=== PATIENT | male | born 1945 | race Caucasian/White ===

== ENCOUNTER 2017-11-29 09:19 | Day surgery (SDC) | payer MEDICARE, OTHER ==
[~2017-11-29] VITALS: Ht 180.3 cm; Wt 79.8 kg
[2017-11-29] MEDS ORDERED: TRAM50 (09:53)
[2017-11-29] MEDS ORDERED: MONT10T PO (09:53)
[2017-11-29] MEDS ORDERED: Aspir 8181 MG (09:54)
[2017-11-29] MEDS ORDERED: Diclofenac Pota50 MG (09:55)
[2017-11-29] MEDS ORDERED: SEA-OMEGA 1,001 EACH (09:55)
[2017-11-29] MEDS ORDERED: MOMENI (09:55)
[2017-11-29] MEDS ORDERED: ATOR10 (09:56)
[2017-11-29] MEDS ORDERED: Coq-10100 MG (09:56)
[2017-11-29] MEDS ORDERED: CELE200 (09:57)
[2017-11-29] MEDS ORDERED: CHOL10002 (09:57)
[2017-11-29] MEDS ORDERED: Desyrel50 MG (09:58)
[2018-09-20] MEDS ORDERED: CARV6.25 (09:38)
== END 2017-11-29 11:16 | disposition home or self-care (01) ==
LOC: ORSCSDS 09:19
PROVIDERS: Anesthesiology
PROC: 3E0R33Z Introduction of Anti-inflammatory into Spinal Canal, Percutaneous Approach (ICD-10-PCS; principal; 2017-11-29 10:30)
DX: M51.16 Intervertebral disc disorders with radiculopathy, lumbar region (principal); M96.1 Postlaminectomy syndrome, not elsewhere classified; I10 Essential (primary) hypertension; J45.909 Unspecified asthma, uncomplicated; E78.00 Pure hypercholesterolemia, unspecified; Z79.82 Long term (current) use of aspirin; Z79.899 Other long term (current) drug therapy
CPT/HCPCS: J1040

== ENCOUNTER → 2018-12-13 | Outpatient (CLI) | payer MEDICARE, OTHER ==
[~2018-12-13] MED LIST: ATOR10; Aspir 8181 MG; CARV6.25; CELE200; CHOL10002; Coq-10100 MG; Desyrel50 MG; Diclofenac Pota50 MG; MOMENI; MONT10T PO; SEA-OMEGA 1,001 EACH; TRAM50
[2018-12-13 19:01] LABS: U Amphetamine Screen Not Detected; U Barbituate Screen Not Detected; U Benzodiazapine Screen Not Detected; U Buprenorphine Screen Not Detected; U Cannabinoids Screen Not Detected; U Cocaine Screen Not Detected; U Methadone Screen Not Detected; U Methamphetamine Screen Not Detected; U Opiates Screen Not Detected; U Oxycodone Screen Not Detected; U Phencyclidine Screen Not Detected; U Propoxyphene Screen Not Detected
== END | disposition home or self-care (01) ==
LOC: LAB 16:43 → LAB SHORT 16:43
PROVIDERS: Family Medicine
DX: M54.9 Dorsalgia, unspecified (principal); G89.29 Other chronic pain; Z79.891 Long term (current) use of opiate analgesic

== ENCOUNTER 2019-01-03 13:38 | Day surgery (SDC) | payer MEDICARE, OTHER ==
[~2019-01-03] VITALS: Ht 185.4 cm; Wt 78.5 kg
[2019-01-03] MEDS ORDERED: MYRBETRIQ25 MG PO (13:58)
== END 2019-01-03 15:03 | disposition home or self-care (01) ==
LOC: ORSCSDS 13:38
PROVIDERS: Anesthesiology
PROC: 3E0R33Z Introduction of Anti-inflammatory into Spinal Canal, Percutaneous Approach (ICD-10-PCS; principal; 2019-01-03 14:45)
DX: M54.16 Radiculopathy, lumbar region (principal); M96.1 Postlaminectomy syndrome, not elsewhere classified; I10 Essential (primary) hypertension; E78.00 Pure hypercholesterolemia, unspecified; J45.909 Unspecified asthma, uncomplicated; Z79.82 Long term (current) use of aspirin; Z79.899 Other long term (current) drug therapy
CPT/HCPCS: J1040

== ENCOUNTER 2019-01-25 07:12 | Day surgery (SDC) | payer MEDICARE, OTHER ==
[~2019-01-25] VITALS: Ht 185.4 cm; Wt 78.7 kg
[~2019-01-25 07:12] MED LIST changes: +ATOR10 PO; +CARV3.125 PO; +CELE200 PO; +COENZYME Q10100 MG PO; +Glucosamine-Ch1 EACH PO; +LO-DOSE ASPIRIN81 MG PO; +MYRBETRIQ25 MG PO; +PENNSAID2 GM TOP; +SILDENAFIL20 MG PO; +Sea-Omega 30 C1 EACH PO; +Sudogest60 MG PO; +TRAM50 PO; +VITAMIN D32000 UNIT PO
== END 2019-01-25 08:30 | disposition home or self-care (01) ==
LOC: ORSCSDS 07:12
PROVIDERS: Anesthesiology
PROC: 3E0R33Z Introduction of Anti-inflammatory into Spinal Canal, Percutaneous Approach (ICD-10-PCS; principal; 2019-01-25 08:15)
DX: M51.16 Intervertebral disc disorders with radiculopathy, lumbar region (principal); M96.1 Postlaminectomy syndrome, not elsewhere classified; J45.909 Unspecified asthma, uncomplicated; I10 Essential (primary) hypertension; E78.00 Pure hypercholesterolemia, unspecified; Z79.82 Long term (current) use of aspirin; Z79.899 Other long term (current) drug therapy
CPT/HCPCS: J1040

== ENCOUNTER 2020-08-01 07:13 | Day surgery (SDC) | payer MEDICARE, OTHER ==
[~2020-08-01] VITALS: Ht 182.9 cm; Wt 78.2 kg
[~2020-08-01 07:13] MED LIST changes: +CARV6.25 PO; +GLUCOSAMIN-CHO1 EACH PO; +NAPR220 PO; +NASONEX17 G1 INH; +OMEGA FISH O PO; +PSEU120ER PO; +SILD50TA PO; +TRAZ50 PO; +VITAMIN D32000 UNI1 PO
== END 2020-08-01 10:15 | disposition home or self-care (01) ==
LOC: ORSCSDS 07:13
PROVIDERS: Orthopaedic Surgery
PROC: 01N40ZZ Release Ulnar Nerve, Open Approach (ICD-10-PCS; principal; 2020-08-01 08:45)
DX: G56.22 Lesion of ulnar nerve, left upper limb (principal); I10 Essential (primary) hypertension; E78.5 Hyperlipidemia, unspecified; E11.9 Type 2 diabetes mellitus without complications; J45.909 Unspecified asthma, uncomplicated; Z79.899 Other long term (current) drug therapy; Z87.891 Personal history of nicotine dependence
CPT/HCPCS: 82947; 93005; 93010; J0171; J0690; J1100; J1885; J2405; J2704; J3010; J7120

== ENCOUNTER 2021-11-19 08:19 | Day surgery (SDC) | payer MEDICARE, OTHER ==
[~2021-11-19] VITALS: Ht 182.9 cm; Wt 77.1 kg
[~2021-11-19 08:19] MED LIST changes: +Acetaminophen650 M1 PO; +CHONDROITIN SULFATE PO; +COLLAGENASE INJ; +COQ1050 MG PO; -GLUCOSAMIN-CHO1 EACH PO; +SYSTANE BALANCE10 ML BOTHEYES; +[UNRECOGNIZED DRUG - OTHER] PO
--- NOTE | 2021-11-19 18:01 | NUR ---
PATIENT CURRENTLY SITTING UP IN CHAIR AT BEDSIDE. PATIENT ABLE TO MOVE AND FEEL BOTH LEGS. NO COMPLAINTS OF PAIN VOICED. PATIENT ABLE TO MAKE NEEDS AND WANTS KNOWN. AAOX4. CALL LIGHT AND WATER IN EASY REACH. TAKING PO WELL. SL IV. DRESSING TO RIGHT HIP CDI. PATIENT HAS WORKED WITH PT ALREADY AND DID WELL. WILL MONITOR.
[2021-11-20 04:38] LABS: BASOPHILS ABSOLUTE AUTO 0.01 K/mm3 (0.00-0.23); BASOPHILS PERCENT AUTO 0 % (0-2); EOSINOPHILS ABSOLUTE AUTO 0.05 K/mm3 (0.00-0.68); EOSINOPHILS PERCENT AUTO 0 % (0-6); Hemoglobin 12.1 g/dL (13.5-17.5); IMMATURE GRAN ABSOLUTE AUTO 0.08 K/mm3 (0.00-0.10); IMMATURE GRAN PERCENT AUTO 1 % (0-1); LYMPHOCYTES ABSOLUTE AUTO 1.12 K/mm3 (0.84-5.20); LYMPHOCYTES PERCENT AUTO 8 % (21-46); MONOCYTES ABSOLUTE AUTO 1.65 K/mm3 (0.16-1.47); MONOCYTES PERCENT AUTO 12 % (4-13); Mean Corpuscular HGB 30.9 pg (26.0-34.0); Mean Corpuscular HGB Conc 32.7 g/dL (31.5-36.5); Mean Corpuscular Volume 94 fL (80-100); Mean Platelet Volume 11.2 fL (9.1-12.4); NEUTROPHILS ABSOLUTE AUTO 11.36 K/mm3 (1.96-9.15); NEUTROPHILS PERCENT AUTO 80 % (41-73); Platelet Count 206 K/mm3 (150-400); RDW Coefficient Variation 12.1 % (11.7-14.2); RDW Standard Deviation 41.9 fL (35.1-46.3); Red Blood Cell Count 3.92 M/mm3 (4.30-5.90); White Blood Cell Count 14.27 K/mm3 (4.00-11.30)
[2021-11-20 04:56] LABS: Anion Gap 5 mmol/L (6-16); Blood Urea Nitrogen 22 mg/dL (8-24); CO2, Blood 26 mmol/L (21-32); Calcium, Blood 8.7 mg/dL (8.5-10.1); Chloride, Blood 107 mmol/L (98-108); Glomerular Filtration Rate >60 (60-); Glucose, Blood 123 mg/dL (70-99); Potassium, Blood 4.2 mmol/L (3.5-5.5); Sodium, Blood 138 mmol/L (136-145)
--- NOTE | 2021-11-20 08:07 | NUR ---
SUMMARY UP IN HALLS WITH SBA. TOLERATING PO.VOIDING. PAIN LEVEL 1. PLANS FOR DISCHARGE TODAY.
[2021-11-20] MEDS ORDERED: Aspir 8181 MG PO (09:37)
--- NOTE | 2021-11-20 10:11 | NUR ---
pt. discharged to home. Friend here to take pt. home. DC instructions explained and copy given to patient along with xavier durán and warren yo. patient verbalize understanding of dc instructions. Pt. belongings and polar pack sent with pt.- w/c to exit.
== END 2021-11-20 10:08 | disposition home or self-care (01) ==
LOC: ORSCMMR 08:19 → SURS 12:49 → ORSCMMR 13:30
PROVIDERS: Orthopaedic Surgery
PROC: 0SR90JZ Replacement of Right Hip Joint with Synthetic Substitute, Open Approach (ICD-10-PCS; principal; 2021-11-19 10:00)
DX: M16.11 Unilateral primary osteoarthritis, right hip (principal); E11.9 Type 2 diabetes mellitus without complications; E78.5 Hyperlipidemia, unspecified; I10 Essential (primary) hypertension; Z87.891 Personal history of nicotine dependence; Z79.899 Other long term (current) drug therapy
CPT/HCPCS: 36415; 72170; 80048; 82947; 85025; 97110; 97116; 97162; A9270; C1776; J0171; J0690; J0735; J1100; J1885; J2250; J2370; J2405; J2704; J2795; J3010; J7120

== ENCOUNTER 2022-12-15 07:35 | Day surgery (SDC) | payer MEDICARE, OTHER ==
[~2022-12-15] VITALS: Ht 182.9 cm; Wt 75.9 kg
[~2022-12-15 07:35] MED LIST changes: +Aspir 8181 MG PO
[2022-12-15] MEDS ORDERED: GLUCHON (07:57)
== END 2022-12-15 09:51 | disposition home or self-care (01) ==
LOC: ORSCSDS 07:35
PROVIDERS: Internal Medicine Gastroenterology
PROC: 0DB58ZX Excision of Esophagus, Via Natural or Artificial Opening Endoscopic, Diagnostic (ICD-10-PCS; 2022-12-15)
PROC: 0D758ZZ Dilation of Esophagus, Via Natural or Artificial Opening Endoscopic (ICD-10-PCS; principal; 2022-12-15 09:00)
DX: R13.14 Dysphagia, pharyngoesophageal phase (principal); K20.0 Eosinophilic esophagitis; K22.2 Esophageal obstruction; K44.9 Diaphragmatic hernia without obstruction or gangrene; K57.30 Diverticulosis of large intestine without perforation or abscess without bleeding; Z79.899 Other long term (current) drug therapy
CPT/HCPCS: 82947; 88305; 88312; J2704; J7120

== ENCOUNTER 2023-08-15 12:56 | Day surgery (SDC) | payer MEDICARE, OTHER ==
[~2023-08-15] VITALS: Ht 182.9 cm; Wt 78.1 kg
[~2023-08-15 12:56] MED LIST changes: +GLUCHON
[2023-08-15] MEDS ORDERED: OMEP20ER (13:40)
[2023-08-15] MEDS ORDERED: Acetaminophen650 M1 (13:40)
[2023-08-15] MEDS ORDERED: VITAMIN D310 MC4 (13:40)
[2023-08-15] MEDS ORDERED: PILOCARPINE HCL (13:41)
[2023-08-15] MEDS ORDERED: CENTRUM SILVER1 EAC2 (13:41)
[2023-08-15] MEDS ORDERED: CHONDROITIN SU100 GM (13:41)
[2023-08-15 15:55] VITALS: BP 143/81
== END 2023-08-15 15:50 | disposition home or self-care (01) ==
LOC: ORSCSDS 12:56
PROVIDERS: Internal Medicine Gastroenterology
PROC: 0DBL8ZX Excision of Transverse Colon, Via Natural or Artificial Opening Endoscopic, Diagnostic (ICD-10-PCS; principal; 2023-08-15 14:15)
DX: Z12.11 Encounter for screening for malignant neoplasm of colon (principal); Z86.010 Personal history of colon polyps; Z83.79 Family history of other diseases of the digestive system; K63.5 Polyp of colon; K21.9 Gastro-esophageal reflux disease without esophagitis; K57.30 Diverticulosis of large intestine without perforation or abscess without bleeding; K64.8 Other hemorrhoids; Z79.899 Other long term (current) drug therapy
CPT/HCPCS: 88305; J0461; J1980; J2001; J2405; J2704; J7120; Q9968

== ENCOUNTER → 2024-01-16 | Outpatient (CLI) | payer MEDICARE, OTHER ==
[~2024-01-16] MED LIST changes: +Acetaminophen650 M1; +CENTRUM SILVER1 EAC2; +CHONDROITIN SU100 GM; +OMEP20ER; +PILOCARPINE HCL; +VITAMIN D310 MC4
== END ==
LOC: LAB SHORT 08:20 → LAB 08:20
DX: L84 Corns and callosities (principal); M20.32 Hallux varus (acquired), left foot; M19.072 Primary osteoarthritis, left ankle and foot; M67.472 Ganglion, left ankle and foot; M79.672 Pain in left foot
CPT/HCPCS: 88305